=== PATIENT | female | born 1950 | race Caucasian/White ===

== ENCOUNTER 2022-02-26 11:29 | Emergency (ER) | payer MEDICARE, OTHER ==
[2022-02-26] MEDS ORDERED: Sodium Chloride 0.9% 2.5 ML Syringe FLUSH PRN (12:42)
[2022-02-26] MEDS ORDERED: metroNIDAZOLE/Normal Saline 500 MG in Premix Bag 1 BAG IV ONE (12:42)
[2022-02-26] MEDS ORDERED: Sodium Chloride 0.9% 10 ML Syringe FLUSH PRN (12:42)
[2022-02-26] MEDS ORDERED: Ciprofloxacin in D5W 400 MG in Premix Bag 1 BAG IV STA ×2 (12:43)
== END 2022-02-26 16:23 | disposition home or self-care (01) ==
LOC: MW.ED 11:29
DX: K52.9 Noninfective gastroenteritis and colitis, unspecified (principal); Z88.2 Allergy status to sulfonamides; Z79.899 Other long term (current) drug therapy; Z90.710 Acquired absence of both cervix and uterus
CPT/HCPCS: 81001; 96365; 96367; 99284; J0744; J3490

== ENCOUNTER 2022-07-03 07:10 | Day surgery (SDC) | payer MEDICARE, OTHER ==
[~2022-07-03 07:10] MED LIST: Lactated Ringers 1,000 ML IV SCH
[2022-07-03] MEDS ORDERED: Propofol 200 MG/20 ML SDV ONE ×2 (07:28→09:04)
[2022-07-03] MEDS ORDERED: Lidocaine 2% 5 ML SDV ONE (08:38)
== END 2022-07-03 10:02 | disposition home or self-care (01) ==
LOC: MW.SDS 07:10
PROVIDERS: ATTEND Surgery
DX: K63.5 Polyp of colon (principal); K21.00 Gastro-esophageal reflux disease with esophagitis, without bleeding; K31.7 Polyp of stomach and duodenum; K63.89 Other specified diseases of intestine; K44.9 Diaphragmatic hernia without obstruction or gangrene; K64.8 Other hemorrhoids; K57.30 Diverticulosis of large intestine without perforation or abscess without bleeding; F41.9 Anxiety disorder, unspecified; F32.A Depression, unspecified; I10 Essential (primary) hypertension; G47.30 Sleep apnea, unspecified; G43.909 Migraine, unspecified, not intractable, without status migrainosus; F17.210 Nicotine dependence, cigarettes, uncomplicated; Z88.2 Allergy status to sulfonamides; Z88.1 Allergy status to other antibiotic agents; Z79.899 Other long term (current) drug therapy; Z98.890 Other specified postprocedural states; Z90.710 Acquired absence of both cervix and uterus; Z79.82 Long term (current) use of aspirin
CPT/HCPCS: 43239; 45380; 88305; J2704; J7120; 00813; 99100

== ENCOUNTER 2023-03-17 10:09 | Emergency (ER) | payer MEDICARE, OTHER ==
[2023-03-17] MEDS ORDERED: Sodium Chloride 0.9% 2.5 ML Syringe FLUSH PRN (10:23)
[2023-03-17] MEDS ORDERED: Sodium Chloride 0.9% 10 ML Syringe FLUSH PRN (10:23)
[2023-03-17 10:42] LABS: BASOPHILS PERCENT AUTO 0.3 % (0.0-1.5); EOSINOPHILS ABSOLUTE AUTO 0.1 K/uL (0.0-0.7); EOSINOPHILS PERCENT AUTO 1.7 % (0.0-7.0); HEMATOCRIT 41.6 % (36.0-46.0); HEMOGLOBIN 13.7 g/dL (12.0-16.0); LYMPHOCYTES ABSOLUTE AUTO 1.9 K/uL (0.6-2.4); LYMPHOCYTES PERCENT AUTO 32.2 % (16.0-40.0); MEAN CORPUSCULAR HEMOGLOBIN 28.6 pg (27.0-32.0); MEAN CORPUSCULAR HGB CONC 32.9 g/dL (31.0-37.0); MEAN CORPUSCULAR VOLUME 86.8 fL (80.0-98.0); MONOCYTES ABSOLUTE AUTO 0.4 K/uL (0.0-0.8); MONOCYTES PERCENT AUTO 6.6 % (0.0-15.0); NEUTROPHILS ABSOLUTE AUTO 3.5 K/uL (1.4-5.7); NEUTROPHILS PERCENT AUTO 59.2 % (48.0-80.0); NRBC ABSOLUTE 0 K/uL; PLATELET COUNT,PLT 209 K/uL (150-400); RED BLOOD CELL COUNT 4.79 M/uL (4.30-5.90); WHITE BLOOD CELL COUNT,WBC 5.87 K/uL (4.0-11.0)
[2023-03-17 11:15] LABS: INR 0.98 (0.86-1.11)
[2023-03-17 11:33] LABS: ALANINE AMINOTRANSFERASE,ALT 35 IU/L (14-63); ALBUMIN 3.6 g/dL (3.4-5.0); ALKALINE PHOSPHATASE 65 U/L (46-116); ASPARTATE AMNIOTRANSFERASE,AST 19 IU/L (15-37); BILIRUBIN TOTAL 0.3 mg/dL (0.2-1.0); BLOOD UREA NITROGEN,BUN 25 mg/dL (7.0-18.0); CALCIUM 8.9 mg/dL (8.5-10.1); CARBON DIOXIDE,CO2 27.7 mmol/L (21.0-32.0); CHLORIDE,CL 104 mmol/L (98-107); CREATININE 1.1 mg/dL (0.6-1.0); GLUCOSE RANDOM 135 mg/dL (74-106); POTASSIUM,K 3.5 mmol/L (3.5-5.1); PROTEIN TOTAL,TP 7.2 g/dL (6.4-8.2); SODIUM,NA 141 mmol/L (136-145)
[2023-03-17 11:39] LABS: ESTIMATED GFR 54 mL/min (>60)
[2023-03-17] MEDS ORDERED: Iopamidol 755 MG/ML 500 ML Multipack Bottle IVPUSH STA (12:32)
== END 2023-03-17 16:37 | disposition home or self-care (01) ==
LOC: MW.ED 10:09
DX: G45.9 Transient cerebral ischemic attack, unspecified (principal); Z88.1 Allergy status to other antibiotic agents; Z88.2 Allergy status to sulfonamides; Z88.8 Allergy status to other drugs, medicaments and biological substances; Z79.82 Long term (current) use of aspirin
CPT/HCPCS: 36415; 70450; 70496; 70498; 70551; 80053; 82947; 84484; 85025; 85610; 93005; 99284; J3490; Q9967; 93010; 99285

== ENCOUNTER 2023-03-30 10:03 | Observation (INO) | payer MEDICARE, OTHER ==
[2023-03-30] MEDS ORDERED: Sodium Chloride 0.9% 10 ML Syringe FLUSH PRN (10:29)
[2023-03-30] MEDS ORDERED: Sodium Chloride 0.9% 2.5 ML Syringe FLUSH PRN (10:29)
[2023-03-30 10:36] LABS: BASOPHILS PERCENT AUTO 0.5 % (0.0-1.5); EOSINOPHILS ABSOLUTE AUTO 0.1 K/uL (0.0-0.7); EOSINOPHILS PERCENT AUTO 1.4 % (0.0-7.0); HEMATOCRIT 42.2 % (36.0-46.0); HEMOGLOBIN 14.1 g/dL (12.0-16.0); LYMPHOCYTES ABSOLUTE AUTO 1.9 K/uL (0.6-2.4); LYMPHOCYTES PERCENT AUTO 29.2 % (16.0-40.0); MEAN CORPUSCULAR HEMOGLOBIN 28.8 pg (27.0-32.0); MEAN CORPUSCULAR HGB CONC 33.4 g/dL (31.0-37.0); MEAN CORPUSCULAR VOLUME 86.3 fL (80.0-98.0); MONOCYTES ABSOLUTE AUTO 0.5 K/uL (0.0-0.8); NEUTROPHILS PERCENT AUTO 61.9 % (48.0-80.0); NRBC ABSOLUTE 0 K/uL; PLATELET COUNT,PLT 215 K/uL (150-400); RED BLOOD CELL COUNT 4.89 M/uL (4.30-5.90); WHITE BLOOD CELL COUNT,WBC 6.43 K/uL (4.0-11.0)
[2023-03-30 11:19] LABS: A/G RATIO 1.1 (0.9-1.6); ALBUMIN 3.9 g/dL (3.4-5.0); BILIRUBIN TOTAL 0.4 mg/dL (0.2-1.0); CALCIUM 9.4 mg/dL (8.5-10.1); CARBON DIOXIDE,CO2 30.3 mmol/L (21.0-32.0); EST CRCL DRUG DOSING (CG) 42.68 mL/min; PROTEIN TOTAL,TP 7.5 g/dL (6.4-8.2); TSH ULTRASENSITIVE 2.46 uIU/mL (0.36-3.74)
[2023-03-30] MEDS ORDERED: Acetaminophen 325 MG Tab PO PRN (12:16)
[2023-03-30] MEDS: Clopidogrel 75 MG Tab PO SCH (17:05)
[2023-03-30] MEDS: Aspirin 81 MG Tab.EC PO SCH (17:05)
[2023-03-30 17:23] LABS: HEMOGLOBIN A1C 6.2 %
[2023-03-30] MEDS ORDERED: Pravastatin 40 MG Tab PO SCH (21:00)
[2023-03-30] MEDS ORDERED: Rosuvastatin 10 MG Tab PO SCH (21:00)
[2023-03-30] MEDS: Gabapentin 100 MG Cap PO SCH (21:07)
[2023-03-31 06:01] LABS: BASOPHILS PERCENT AUTO 0.4 % (0.0-1.5); EOSINOPHILS ABSOLUTE AUTO 0.2 K/uL (0.0-0.7); EOSINOPHILS PERCENT AUTO 2.9 % (0.0-7.0); HEMATOCRIT 38.8 % (36.0-46.0); HEMOGLOBIN 13.4 g/dL (12.0-16.0); LYMPHOCYTES ABSOLUTE AUTO 1.8 K/uL (0.6-2.4); LYMPHOCYTES PERCENT AUTO 34.8 % (16.0-40.0); MEAN CORPUSCULAR HEMOGLOBIN 29.5 pg (27.0-32.0); MEAN CORPUSCULAR HGB CONC 34.5 g/dL (31.0-37.0); MEAN CORPUSCULAR VOLUME 85.3 fL (80.0-98.0); MONOCYTES ABSOLUTE AUTO 0.4 K/uL (0.0-0.8); MONOCYTES PERCENT AUTO 7.8 % (0.0-15.0); NEUTROPHILS ABSOLUTE AUTO 2.8 K/uL (1.4-5.7); NEUTROPHILS PERCENT AUTO 54.1 % (48.0-80.0); NRBC ABSOLUTE 0 K/uL; PLATELET COUNT,PLT 200 K/uL (150-400); RED BLOOD CELL COUNT 4.55 M/uL (4.30-5.90); WHITE BLOOD CELL COUNT,WBC 5.12 K/uL (4.0-11.0)
[2023-03-31] MEDS: Gabapentin 100 MG Cap PO SCH (06:13)
[2023-03-31] MEDS ORDERED: Citalopram 20 MG Tab PO SCH (09:00)
[2023-03-31] MEDS ORDERED: Cholecalciferol (Vitamin D3) 25 MCG Tab PO SCH (09:00)
[2023-03-31] MEDS ORDERED: Polyethylene Glycol 3350 Powder 17 GM Packet PO SCH (09:00)
[2023-03-31] MEDS: Aspirin 81 MG Tab.EC PO SCH (09:14)
[2023-03-31] MEDS: Clopidogrel 75 MG Tab PO SCH (09:14)
== END 2023-03-31 10:43 | disposition home or self-care (01) ==
LOC: MW.ED 10:03 → MW.MS 11:47
PROVIDERS: ADMIT Family Medicine; ATTEND Family Medicine
DX: R20.0 Anesthesia of skin (principal); R53.1 Weakness; I10 Essential (primary) hypertension; K21.9 Gastro-esophageal reflux disease without esophagitis; K58.9 Irritable bowel syndrome, unspecified; M19.90 Unspecified osteoarthritis, unspecified site; F41.9 Anxiety disorder, unspecified; F32.A Depression, unspecified; Z87.891 Personal history of nicotine dependence; Z79.82 Long term (current) use of aspirin; Z79.899 Other long term (current) drug therapy; Z88.1 Allergy status to other antibiotic agents; Z88.8 Allergy status to other drugs, medicaments and biological substances; Z88.2 Allergy status to sulfonamides
CPT/HCPCS: 36415; 70551; 80053; 80061; 83036; 84443; 84484; 85025; 85610; 93005; 93306; 99285; A9270; G0378; 93010